=== PATIENT | male | born 1960 | race Caucasian/White ===

== ENCOUNTER → 2016-11-02 | Outpatient (CLI) | payer BC ==
[~2016-11-02] MED LIST: IBUP-1007 PO; VARE1TAB21 PO
== END | disposition home or self-care (01) ==
LOC: SURGPAT 13:24
PROVIDERS: ATTEND Neurological Surgery
DX: M96.1 Postlaminectomy syndrome, not elsewhere classified (principal)
CPT/HCPCS: 36415; 87641

== ENCOUNTER 2016-11-12 05:53 | Inpatient (IN) | payer BC ==
[~2016-11-12] VITALS: Ht 180.3 cm; Wt 78.0 kg
[2016-11-12] VITALS (9 sets, daily range): BP systolic 116–130; BP diastolic 67–83
[2016-11-12] MEDS ORDERED: BACITRACIN 50,000 UNIT in IV NORMAL SALINE 1000ML BAG 1,000 ML IRR ONE (06:00)
[2016-11-12] MEDS ORDERED: CEFAZOLIN 2GM PREMIX 50 ML IV ONE ×2 (06:33→08:00)
[2016-11-12] MEDS ORDERED: THROMBIN 20,000 UNIT SPRAY.SYRN KIT TP ONE (06:44)
[2016-11-12] MEDS ORDERED: GELATIN SPONGE SIZE 100. ONE (06:44)
[2016-11-12] MEDS ORDERED: KETOROLAC 60 MG/2 ML SYRINGE FOR OR. ONE (06:45)
[2016-11-12] MEDS ORDERED: BUPIVAC MPF-EPI 0.5%-1:200000 30 ML VIAL. ONE (06:45)
--- NOTE | 2016-11-12 06:49 | PREOP HP ---
DATE OF SERVICE: 11/12/2016 HISTORY OF PRESENT ILLNESS: The patient is a pleasant 56-year-old who is having difficulty with severe pain which radiates from his lower back into his right hip and then into the right anterior thigh and leg. He says that the pain is constant. He rates it as a 6-7/10. He says lying down in bed and trying to sleep exacerbates his pain. A TENS unit or ice or heat can gave him some temporary relief. He Motrin limits his activities. For his problem, he has had epidural steroid injections as well as physical therapy. He has undergone three surgeries in his lumbar spine in 1995. He underwent surgery at L5-S1 and did well from that. He has, however, undergone two surgeries on the right side at L3-L4. One was done in 2014 and the other in 2015. There is a recurrent disk protrusion at L3-L4 on the right side with nerve root compression. PAST MEDICAL HISTORY: None reported. PAST SURGICAL HISTORY: L3-L4 diskectomy in 10/2015, L3-L4 diskectomy in 11/2014 and L5-S1 discectomy in January 1996 and right shoulder rotator cuff surgery in 2003. FAMILY HISTORY: Alzheimer disease, cancer, diabetes, hypertension. 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 . Rarely exercises. Smokes 1 pack per day and has for 30 years. Drinks alcohol one to two times per month. ALLERGIES: No known drug allergies. CURRENT MEDICATIONS: [place], ibuprofen. REVIEW OF SYSTEMS: A 12-point review of systems is noncontributory except for that mentioned above. PHYSICAL EXAMINATION: NEUROSURGERY EXAMINATION: GENERAL APPEARANCE: Alert and pleasant, in no acute distress. HEAD: Normocephalic and atraumatic. SKIN: Warm and dry. BACK: Well healed lumbar incision. MUSCULOSKELETAL: Lumbar paraspinal muscle bulk is normal, restricted range of motion of lumbar spine, [id number] tenderness of lower lumbar spine with palpation, normal range of motion of the lower extremities bilaterally. EXTREMITIES: No clubbing, cyanosis, or edema. NEUROLOGIC: Alert and oriented x 3, normal recent and remote memory, strength 5/5 in bilateral lower extremities, sensory was intact to light touch in the lower extremities bilaterally except for decrease in the right anterior thigh, reflexes were present and symmetric in bilateral lower extremities except for 1+ right knee jerk compared to 2+ left knee jerk, negative straight leg raising bilaterally, antalgic gait favoring his right leg. IMAGING: Reviewed. I reviewed his lumbar MRI scan from 04/08/2016. On that study, the principal abnormality is at L3-L4 where there is a moderately large disk herniation which extends to the right side with compression of the right L4 nerve root. There is a large central disk which appears ossified at L5-S1. There is no high-grade stenosis at any level. ASSESSMENT: Intervertebral disk disorders with radiculopathy, lumbar region. PLAN: The patient has a significant right lumbar radiculopathy related to his herniated disk at L3-L4 on the right side. He has undergone 2 previous surgeries at this level and has failed to have any lasting relief with lumbar conservative measures including epidural steroid injections and physical therapy. At this point, further surgery at L3-L4 will require significant bone removal superiorly, inferiorly, laterally and medially to safely expose the nerve root and herniated disk. There will be removal of at least 50% of right-sided facet joint at a minimum. Because of the 2 previous operations in addition to diskectomy and decompression, he should undergo an instrumented lumbar fusion at this level. This would require pedicle screw fixation at L3 and L4 as well as posterior lateral fusion, in addition to an anterior diskectomy and fusion at this level. I discussed with him in detail. I outlined the risks of surgery. I spoke about the expected postoperative course. He understands. He would like to go ahead. He would like us to make the arrangements. RU BAHENA MD DR: RICHARDSON/cecily JOB#: [id number] / [id number]
[2016-11-12] MEDS ORDERED: HYDROMORPHONE 2 MG/ML VIAL. IV PRN (07:00)
[2016-11-12] MEDS ORDERED: PROCHLORPERAZINE 10 MG/2 ML VIAL. IV PRN (07:00)
[2016-11-12] MEDS ORDERED: FENTANYL PF 100 MCG/2 ML VIAL. IV PRN ×3 (07:00→14:00)
[2016-11-12] MEDS ORDERED: ONDANSETRON PF 4 MG/2 ML VIAL. IV PRN ×2 (07:00→14:00)
[2016-11-12] MEDS ORDERED: IV RINGERS,LACTATED 1000ML 1,000 ML IV SCH (07:00)
[2016-11-12] MEDS ORDERED: MORPHINE SULFATE 2 MG/ML DISP.SYRIN. IV PRN (07:00)
[2016-11-12] MEDS ORDERED: LIDOCAINE 1% 1 ML SYRINGE. ID PRN (07:00)
[2016-11-12] MEDS ORDERED: FENTANYL PF 100 MCG/2 ML VIAL. ONE ×2 (07:50→12:54)
[2016-11-12] MEDS ORDERED: MIDAZOLAM HCL 2 MG/2 ML VIAL. ONE (07:50)
[2016-11-12] MEDS ORDERED: REMIFENTANIL 2 MG VIAL. IV ONE ×2 (07:50→11:03)
[2016-11-12] MEDS ORDERED: ROCURONIUM 50 MG/5 ML VIAL. ONE (07:50)
[2016-11-12] MEDS ORDERED: PROPOFOL 20 ML IV ONE (07:51)
[2016-11-12] MEDS ORDERED: DEXAMETHASONE SOD PHOS 20 MG/5 ML VIAL. ONE (07:51)
[2016-11-12] MEDS ORDERED: FAMOTIDINE 20 MG/2 ML VIAL ONE (07:51)
[2016-11-12] MEDS ORDERED: 0.9 % SODIUM CHLORIDE 50 ML VIAL. IJ ONE (07:51)
[2016-11-12] MEDS ORDERED: ONDANSETRON PF 4 MG/2 ML VIAL. ONE ×2 (07:51→13:07)
[2016-11-12] MEDS ORDERED: LIDOCAINE 2% 100 MG/5 ML DISP.SYRIN. ONE (07:51)
[2016-11-12] MEDS ORDERED: DESFLURANE > 120 MINUTES IH ONE (07:57)
[2016-11-12] MEDS ORDERED: PROPOFOL 200 ML IV ONE (08:00)
--- NOTE | 2016-11-12 08:39 | RAD ---
CT of the lumbar spine without contrast, 11/12/2016: History: Lumbar radiculopathy, brain lab study Noncontrast scans were obtained with multiplanar reconstructions produced. The data was transferred to the operating room to aid in the patient's stereotactically guided surgery. The following findings are delineated: 1. At L1-2 there is no significant posterior disc bulge. The central spinal canal and neural foramina are well maintained. 2. At L2-3 there are mild degenerative changes involving the facet joints. There is minimal posterior disc bulging. The central spinal canal and neural foramina are well maintained. 3. At L3-4 there is disc space narrowing with a vacuum disc phenomena. There are large posterior marginal spurs. There are mild degenerative changes involving the facet joints. The combination of findings is causing moderate central spinal stenosis with the thecal sac measuring 6-7 mm at the midline. There is mild bilateral foraminal encroachment. 4. At L4-5 there is also moderate degenerative disc disease with a prominent disc/osteophyte complex at the midline. There are mild degenerative changes involving the facet joints. There is borderline central spinal stenosis and moderate inferior foraminal encroachment, more so on the right. 5. At L5-S1 there is a large posterior disc/osteophyte complex centered at the midline. There are mild degenerative changes involving the facet joints. The thecal sac measures 11 mm in AP diameter at the midline. There is moderate bilateral foraminal encroachment.
[2016-11-12] MEDS ORDERED: EPHEDRINE PF IN SALINE 50 MG/5 ML DISP.SYRIN. IV ONE (09:20)
[2016-11-12] MEDS ORDERED: CEFAZOLIN PREMIX 2 GM/50 ML BAG. IV ONE (12:25)
[2016-11-12] MEDS ORDERED: DIPHENHYDRAMINE 50 MG/ML VIAL IV PRN (14:00)
[2016-11-12] MEDS ORDERED: CALCIUM CARBONATE 500 MG TAB.CHEW PO PRN (14:00)
[2016-11-12] MEDS ORDERED: ZOLPIDEM 5 MG TABLET. PO PRN (14:00)
[2016-11-12] MEDS ORDERED: MAGNESIUM HYDROXIDE 2,400 MG/30 ML ORAL.SUSP. PO PRN (14:00)
[2016-11-12] MEDS ORDERED: OXYCODONE/APAP 5/325 TABLET. PO PRN (14:00)
[2016-11-12] MEDS ORDERED: 0.9 % SODIUM CHLORIDE 10 ML DISP.SYRIN. IV PRN (14:00)
[2016-11-12] MEDS ORDERED: ACETAMINOPHEN 325 MG TABLET. PO PRN (14:00)
[2016-11-12] MEDS ORDERED: DIPHENHYDRAMINE HCL 25 MG CAPSULE PO PRN (14:00)
[2016-11-12] MEDS ORDERED: MAG HYDROX/AL HYDROX/SIMETH 30 ML ORAL.SUSP PO PRN (14:00)
[2016-11-12] MEDS: FENTANYL PF 100 MCG/2 ML VIAL. IV PRN ×4 (14:34→15:07)
[2016-11-12] MEDS ORDERED: VARENICLINE 0.5 MG TABLET. PO SCH (17:00)
[2016-11-12] MEDS: CEFAZOLIN SODIUM 1 GM in IV NORMAL SALINE 50ML 50 ML IV SCH (17:12)
[2016-11-12] MEDS: POTASSIUM CL 20MEQ D5-0.45NACL 1,000 ML IV SCH (17:13)
[2016-11-12] MEDS: METHOCARBAMOL 750 MG TABLET PO SCH (21:06)
[2016-11-12] MEDS: DOCUSATE SODIUM 100 MG CAPSULE PO SCH (21:06)
[2016-11-12] MEDS: OXYCODONE/APAP 5/325 TABLET. PO PRN (21:07)
[2016-11-13] MEDS: CEFAZOLIN SODIUM 1 GM in IV NORMAL SALINE 50ML 50 ML IV SCH ×2 (01:00→08:21)
[2016-11-13 02:36] VITALS: BP 103/69
[2016-11-13] MEDS: POTASSIUM CL 20MEQ D5-0.45NACL 1,000 ML IV SCH (05:20)
[2016-11-13] MEDS: OXYCODONE/APAP 5/325 TABLET. PO PRN ×2 (06:21→11:35)
[2016-11-13 06:33] VITALS: BP 115/75
--- NOTE | 2016-11-13 07:39 | OP ---
DATE OF SURGERY: PREOPERATIVE DIAGNOSES: 1. Recurrent herniated disk L3-L4. 2. Two previous lumbar micro diskectomies at this level and side. ____. OPERATION PERFORMED: 1. Hemilaminotomy and microdiskectomy re-op L3-L4 with removal of recurrent herniated disk. 2. Posterior instrumentation L3-L4 and posterolateral fusion L3-L4 with allograft and autograft bone. 3. Anterior diskectomy L3-L4 and an anterior interbody fusion L3-L4. The operation was done with EMG monitoring, fluoroscopy, microscopic dissection, BrainLAB guidance. TRACK EQUIPMENT OPERATOR: BROCK James, assisted with the surgery. She assisted with the decompression, instrumentation, anterior diskectomy and fusion and closure. OPERATIVE INDICATIONS: The patient is a very pleasant 56-year-old man who has undergone 2 previous lumbar microsurgeries and developed a recurrent disk herniation for the second time at L3-L4 and I recommended, after he failed conservative measures, lumbar microdiskectomy combined with an instrumented lumbar fusion at this level. I spoke with him about the surgery, the risks, the technique and the expected postoperative course and he wished to go ahead. DESCRIPTION OF PROCEDURE: Following general endotracheal anesthesia, the patient was positioned prone on the Ganga table. His lumbar region was prepped and draped in the standard fashion. MAK hose and AV impulse boots were applied for DVT prophylaxis. A microscope was draped. Fluoroscopy was draped and brought into the field. Monitoring was established. Ancef 2 grams was given less than 1 hour prior to initiation of the surgery. Small incisions were made over the right iliac crest and pins were placed and the [email or web address] system was initialized. I then made an incision from the upper aspect of L3 to the inferior aspect of L4, taken down to skin and subcutaneous tissue, placed a Lenox microdisk distractor first on the left side. I cleared away the muscle and placed self-retaining retractor and exposed the transverse process. I then using the [employer] system for standard landmarks drilled in the posterior aspect of the pedicle of L3 and L4, passed a black ball, followed by the ball tip probe, followed by tap, followed by screw placement. This was done using stimulated EMG monitoring throughout. During this time, I excoriated the lateral facet and the transverse processes. I aspirated 20 mL of bone marrow from the left iliac crest and placed allograft bone in this location. I then placed the doe and nuts were applied for the instrumentation, but I did not torque the system. I then moved to the right side and in a similar fashion, I drilled in the posterior aspect of the pedicles and tapped both. I capped the openings with bone wax. I did use stimulated EMG monitoring throughout. There were no difficulties as on the contralateral side. At this point, then I brought in the microscope and enlarged the hemilaminotomy superiorly, laterally and inferiorly, retracted the dura, which was densely scarred with some difficulty, but there was no undue compression of the nerve root during the dissection. I found a path into sequestered disk fragment and removed two large sequestered disk fragments from the L3-L4 interspace, which appeared it had passed downhill slightly and as I removed these, the area became very well decompressed. I then enlarged the opening into the annulus, performed a generous diskectomy with pituitary rongeurs. There was considerable degenerative change and then at this point, I placed the pedicle screws into L3 and L4, which were using the [email or web address] system. There was 6.5 x 40 screw. The screw at L4 did not feel perfectly secure and I removed it and checked the positioning and felt that it was in excellent position. I placed a 7.5 x 50 screw in this location. The doe was placed and then at this point, I tilted the table away from me and made an incision in the right flank and then passed first the BrainLAB down with a sleeve and docked with it to the lateral attachment of the L4 to the vertebral body, slightly superior to this. I encountered the disk. I assured myself that the L4 root was not impinged by this approach and I did stimulate with a stimulating electrode to ensure that I was in good position. I passed the K-wire then and then passed the dilator followed by the working channel and then performed a very generous diskectomy at L3-L4. There was considerable degenerative change and roughness of the endplates and I worked diligently and removed good deal of material and fully decompressed the entire disk. I then placed the dilator, removed the working channel, placed a guide to help with the placement of the cage again to protect the nerve root and then passed allograft bone into the disk space, followed by a 9 mm trial. I took films. I felt they were satisfactory, removed the trial and placed a 9 mm cage, which I positioned and then released after copious irrigation. Fluoroscopic images looked quite good. I tilted the table back into position and continued with the posterior operation. At this point, then I continued with my excoriation of the lateral facets and transverse processes of L3 and L4 and packed allograft bone into this location along with autograft bone, which I had obtained from the enlargement of the hemilaminotomy, which was a significant quantity of bone. Some of this bone also I placed in the interbody fusion cage for the anterior portion. Following this, then I placed the doe and compressed it very gently at L3-L4 on the right and torqued the system sequentially, then followed this with torquing sequentially the system on the left side. I irrigated copiously. I closed the wound in layers with absorbable suture and skin was closed with 4-0 subcuticular stitch. The operation went very well and the patient was awakened uneventfully, taken to recovery room in excellent condition. I was quite pleased with the surgery. RU BAHENA MD DR: RICHARDSON/cecily JOB#: [id number] / [id number]
[2016-11-13] MEDS: DOCUSATE SODIUM 100 MG CAPSULE PO SCH (08:20)
[2016-11-13] MEDS: METHOCARBAMOL 750 MG TABLET PO SCH (08:20)
--- NOTE | 2016-11-13 10:14 | DISCH ---
DISCHARGE INSTRUCTIONS Condition on Discharge Condition on Discharge: Stable Activity After Discharge Activity Instructions for Disc: Activity as tolerated, Avoid exertion Bathing Instructions: Shower-keep dressing dry Lifting Instructions after Dis: No heavy lifting, No pulling or pushing, Do not lift >10 pounds Driving Instructions after Dis: No driving for 2 weeks Diet after Discharge Additional Diet Restrictions: resume home diet Wound Incision Care Wound/Incision Care: Ice to area for comfort Other wound/incision instructi: may remove dressing in 48 hrs if dry then may shower- no soaking Contacting the after DC Call your doctor for: Concerns you may have Follow-Up Follow up with: Dr. Lynn in 2 weeks [phone] ALDO PELAYO APRN Nov 13, 2016 10:14
[2016-11-13] MEDS ORDERED: OXYC1TAB7 PO (10:20)
[2016-11-13] MEDS ORDERED: DOCU-27 PO (10:20)
[2016-11-13] MEDS ORDERED: METH750T2 PO (10:20)
[2016-11-13] MEDS ORDERED: DOCU100C5 PO (10:48)
[2016-11-13] MEDS ORDERED: OXYC-323 PO (10:48)
[2016-11-13] MEDS ORDERED: METH-38 PO (10:50)
[2016-11-13 11:00] VITALS: BP 121/81
--- NOTE | 2016-11-13 21:08 | DS ---
DATE OF DISCHARGE: 11/13/2016 DATE OF SURGERY: 11/12/2016 DISCHARGE DIAGNOSES: Recurrent herniated disk, L3-L4 as well as two previous lumbar microdiskectomies at this level ____. OPERATION PERFORMED: 1. Hemilaminotomy, microdiskectomy reop, L3-L4 with removal of recurrent herniated disk. 2. Posterior instrumentation, L3-L4 and posterior lateral fusion, L3-L4 with allograft and autograft bone. 3. Anterior diskectomy, L3-L4 with anterior interbody fusion, L3-L4. HISTORY OF PRESENT ILLNESS: The patient is a pleasant 56-year-old man who has undergone 2 previous lumbar microsurgeries and developed a recurrent disk herniation for the second time at L3-L4 and I recommended after he failed conservative measures a lumbar microdiskectomy combined with an instrumented lumbar fusion at this level. I spoke with him about the surgery, the risk and the technique as well as the expected postoperative course and he wished to proceed. HOSPITAL COURSE: He was admitted to the floor postoperatively where he did well. He was up ambulating in the room and in the halls. Physical therapy was initiated and instruction was given to him regarding his activities. He notes significant improvement in his right lower extremity pain. He is in good condition to discharge home. DISCHARGE MEDICATIONS: He will resume his medications per the [facility]. DISCHARGE INSTRUCTIONS: He was instructed regarding incision care, activity restrictions and expectations for the next several weeks. He will follow up in our office in 2 weeks. He understands to call with any questions or concerns. RU BAHENA MD DR: JOHANNA/cecily JOB#: [id number] / [id number]
== END 2016-11-13 11:45 | disposition home or self-care (01) | DRG 460 ==
LOC: OPSVCIP 05:53 → EDUNIT# 10:30 → 4 SOUTHEST 15:20
PROVIDERS: ADMIT Neurological Surgery; ATTEND Neurological Surgery
PROC: 0SB20ZZ Excision of Lumbar Vertebral Disc, Open Approach (ICD-10-PCS; 2016-11-12)
PROC: 4A11X4G Monitoring of Peripheral Nervous Electrical Activity, Intraoperative, External Approach (ICD-10-PCS; 2016-11-12)
PROC: 0SG00A1 (ICD-10-PCS; principal; 2016-11-12 08:30)
DX: M51.16 Intervertebral disc disorders with radiculopathy, lumbar region (principal); Z82.0 Family history of epilepsy and other diseases of the nervous system; Z82.49 Family history of ischemic heart disease and other diseases of the circulatory system; Z83.3 Family history of diabetes mellitus; Z87.891 Personal history of nicotine dependence
CPT/HCPCS: 36415; 72131; 76000; 86850; 86900; 86901; J0690; J1100; J1885; J2250; J2405; J2704; J3010; J3490; J7030; J7120; S0028; 97530